=== PATIENT | female | born 1945 | race Caucasian/White ===

== ENCOUNTER → 2017-04-25 | Outpatient (CLI) | payer MEDICARE ==
--- NOTE | 2017-04-25 10:26 | CTL ---
EXAMINATION TYPE: CT Low Dose Lung DATE OF EXAM ORDERED: 04/25/2017 HISTORY: Tobacco abuse. Lung cancer screening CT DLP: 8.[address] CTDI: 2.14 mGy Automated exposure control for dose reduction was used. SCREENING VISIT: First screening visit COMPARISON: CT chest with contrast dated 05/03/2011 TECHNIQUE: Low dose computed tomography scan was performed through the chest at 1 mm thick sections a nd reconstructed images in the coronal plane at [address] DIAGNOSTIC QUALITY: Satisfactory FINDINGS: LUNG NODULES: None. Left a nodule with a size of 3 mm. Nodule Type: Subsolid that is Nodule state: New in nature on image # CT Image slide number 59 of series 5. LUNGS: COPD: Severity: None Fibrosis: Severity: None Lymph nodes: Single mildly enlarged 1.1 cm short axis prevascular soft tissue structure seen, possibl y relating to a lymph node. RIGHT PLEURAL SPACE: Effusion: None Calcification: None Thickening: Apical pleural-parenchymal thickening is present. Pneumothorax: None LEFT PLEURAL SPACE: Effusion: None Calcification: None Thickening: Apical pleural parenchyma thickening is present. Pneumothorax: None HEART: Heart Size: Within normal limits Coronary calcification: Mild of the right coronary artery and left anterior descending Pericardial effusion: None OTHER FINDINGS: Upper abdomen: Small hiatal hernia. Bony thorax: Mild multilevel degenerative changes of the thoracic spine are present. IMPRESSION: 1. Solitary left upper lobe subcentimeter pulmonary nodule qualifying as a nodule with a very low lik elihood of becoming clinically significant active cancer according to the LUNG-RADS criteria. However low dose CT thorax is recommended in 12 months to determine stability. 2. 1.1 cm prevascular soft tissue density that may represent a mildly enlarged lymph node. Reevaluati on on the above recommended follow-up examination could be performed. 3. Small hiatal hernia. FOLLOW UP CT CHEST RECOMMENDATION: [address] LUNG RAD: 2
== END | disposition home or self-care (01) ==
LOC: RADCTMAIN 09:18
PROVIDERS: ATTEND Family Medicine
DX: Z12.2 Encounter for screening for malignant neoplasm of respiratory organs (principal); R91.1 Solitary pulmonary nodule; R93.8 Abnormal findings on diagnostic imaging of other specified body structures; Z87.891 Personal history of nicotine dependence

== ENCOUNTER → 2017-08-30 | Outpatient (CLI) | payer MEDICARE ==
--- NOTE | 2017-08-30 18:00 | BD ---
EXAMINATION TYPE: MG DEXA axial skeleton. DATE OF EXAM: 08/30/2017 COMPARISON: 08.13.2002 CLINICAL HISTORY: 71 YR OLD FEMALE: ICD-10 CODE: Z13.820 OSTEOPOROSIS SCREENING Height: 62.3 Weight: 129 FRAX RISK QUESTIONS: Alcohol (3 or more units per day): NO Family History (Parent hip fracture): NO Glucocorticoids (More than 3mos): NO (Ex: prednisone, prednisolone, methylprednisolone, dexamethasone, and hydrocortisone). History of Fracture in Adulthood: NO Secondary Osteoporosis: NO 1. Type 1 Diabetes: NO 2. Hyperthyroidism: NO 3. Menopause before 45: NO 4. Malnutrition: NO 5. Chronic liver disease: NO Rheumatoid Arthritis: NO Current Tobacco Use: YES, ABOUT 10 DAILY RISK FACTORS HISTORY OF: History of Wrist Fracture: RT WRIST When: YOUNG WOMAN Family History of Osteoporosis: NO Active: YES Diet low in dairy products/other sources of calcium: YES, A BIT LOW Postmenopausal woman: YES AT 50 YRS OLD Take estrogen and/or progesterone medications: IN PAST FROM AGE [age] Lost more than 2 inches in height since high school: YES Hyperparathyroidism: NO Adrenal Insufficiency: NO MEDICATIONS: Additional Medications: BP MEDS, LIPITOR, Additional History: HYPERTENSION, CHOLESTEROL EXAM MEASUREMENTS: Bone mineral densitometry was performed using the [employer]. Bone mineral density as measured about the Lumbar spine is: ----- L1-L4(G/cm2): 1.104 T Score Values are as follows: ----- L1: -1.5 ----- L2: -0.4 ----- L3: -0.5 ----- L4: -0.2 ----- L1-L4: -0.6 Bone mineral density has: Increased 8.7% since study of: 08.13.2002 Bone mineral density about the R hip (g/cm2): 0.797 Bone mineral density about the L hip (g/cm2): 0.744 T Score values are as follows: -----R Neck: -2.0 -----L Neck: -2.4 -----R Total: -1.7 -----L Total: -2.1 Bone mineral density has: Decreased -10.2% since study of: 08.13.2002 FRAX%S: THERE IS A15.0% CHANCE OF A MAJOR OSTEOPOROTIC FX AND 5.6% FOR HIP FX....PROBABILITY OF FX IN 10 YRS TIME IMPRESSION: Osteopenia (T Score between -2.5 and -1). There is slightly increased risk of fracture and the patient may be considered for treatment. Re-Screen 2-5 years. NOTE: T-SCORE=SD OF THE YOUNG ADULT MEAN.
--- NOTE | 2017-09-03 09:21 | MM ---
Reason for exam: screening (asymptomatic). Last mammogram was performed 1 year and 6 months ago. History: Patient is postmenopausal and has history of high-risk lesion on a previous biopsy at age 63. Benign right US cyst aspiration of the right breast, November 30, 2009. Benign right breast US guided needle local of the right breast, May 16, 2009. Excisional biopsy of the right breast, May 16, 2009. High risk right US cyst aspiration of the right breast, May 02, 2009. Took estrogen for 14 years 11 months beginning at age 47. Physical Findings: A clinical breast exam by your physician is recommended on an annual basis and results should be correlated with mammographic findings. MG 3D Screening Mammo W/Cad Bilateral CC and MLO view(s) were taken. Prior study comparison: March 13, 2016, bilateral MG 3d screening mammo w/cad. January 24, 2015, bilateral MG screening mammo w CAD. The breast tissue is heterogeneously dense. This may lower the sensitivity of mammography. Previous mammotome biopsy in the right breast. Asymmetric density central left breast just below the retroareolar plane appears more defined. ASSESSMENT: Incomplete: need additional imaging evaluation, BI-RAD 0 RECOMMENDATION: Special view mammogram of the left breast. If lesion persists on supplemental views, image directed ultrasound is recommended. [facility] will attempt to contact patient to return for supplemental views and ultrasound if indicated.
== END | disposition home or self-care (01) ==
LOC: RADMAMWWP 08:11
PROVIDERS: ATTEND Family Medicine
DX: Z12.31 Encounter for screening mammogram for malignant neoplasm of breast (principal); M85.80 Other specified disorders of bone density and structure, unspecified site
CPT/HCPCS: 77063; 77067; 77080

== ENCOUNTER → 2017-09-05 | Outpatient (CLI) | payer MEDICARE ==
--- NOTE | 2017-09-05 09:49 | MM ---
Reason for exam: additional evaluation requested from abnormal screening. Last mammogram was performed less than 1 month ago. History: Patient is postmenopausal and has history of high-risk lesion on a previous biopsy at age 63. Benign right US cyst aspiration of the right breast, November 30, 2009. Benign right breast US guided needle local of the right breast, May 16, 2009. Excisional biopsy of the right breast, May 16, 2009. High risk right US cyst aspiration of the right breast, May 02, 2009. Took estrogen for 14 years 11 months beginning at age 47. Physical Findings: Nurse did not find any significant physical abnormalities on exam. MG 3D Work Up W/Cad LT LM and spot compression MLO view(s) were taken of the left breast. Prior study comparison: August 30, 2017, bilateral MG 3d screening mammo w/cad. March 13, 2016, bilateral MG 3d screening mammo w/cad. The breast tissue is heterogeneously dense. This may lower the sensitivity of mammography. The central asymmetric density appears to disperse on additional views. Precautionary 6 month follow up recommended given appearance on the screening exam. These results were verbally communicated with the patient and result sheet given to the patient on 09/05/17. ASSESSMENT: Probably benign, BI-RAD 3 RECOMMENDATION: Follow-up diagnostic mammogram of the left breast in 6 months.
== END | disposition home or self-care (01) ==
LOC: RADMAMWWP 08:12
PROVIDERS: ATTEND Family Medicine
DX: R92.8 Other abnormal and inconclusive findings on diagnostic imaging of breast (principal)
CPT/HCPCS: 77065; G0279

== ENCOUNTER → 2018-06-04 | Outpatient (CLI) | payer MEDICARE ==
--- NOTE | 2018-06-04 10:40 | MM ---
Reason for exam: follow-up at short interval from prior study. Last mammogram was performed 9 months ago. History: Patient is postmenopausal and has history of high-risk lesion on a previous biopsy at age 63. Benign right US cyst aspiration of the right breast, November 30, 2009. Benign right breast US guided needle local of the right breast, May 16, 2009. Excisional biopsy of the right breast, May 16, 2009. High risk right US cyst aspiration of the right breast, May 02, 2009. Took estrogen for 14 years 11 months beginning at age 47. Physical Findings: Nurse did not find any significant physical abnormalities on exam. MG 3D Diag Mammo W/Cad LT CC and MLO view(s) were taken of the left breast. Prior study comparison: September 05, 2017, left breast MG 3d work up w/cad LT. August 30, 2017, bilateral MG 3d screening mammo w/cad. The breast tissue is heterogeneously dense. This may lower the sensitivity of mammography. Benign oil cyst stable. Anterior asymmetric density below the retroareolar plane persisted. These results were verbally communicated with the patient and result sheet given to the patient on 06/04/18. ASSESSMENT: Benign, BI-RAD 2 RECOMMENDATION: Return to routine screening mammogram schedule for both breasts. Back on schedule.
== END ==
LOC: RADMAMWWP 08:49
PROVIDERS: ATTEND Internal Medicine
DX: R92.2 Inconclusive mammogram (principal)
CPT/HCPCS: 77065; G0279; 77061

== ENCOUNTER → 2018-09-26 | Outpatient (CLI) | payer MEDICARE ==
--- NOTE | 2018-09-29 11:14 | MM ---
Reason for exam: screening (asymptomatic). Last mammogram was performed 4 months ago. History: Patient is postmenopausal and has history of high-risk lesion on a previous biopsy at age 63. Benign right US cyst aspiration of the right breast, November 30, 2009. Benign right breast US guided needle local of the right breast, May 16, 2009. Excisional biopsy of the right breast, May 16, 2009. High risk right US cyst aspiration of the right breast, May 02, 2009. Took estrogen for 14 years 11 months beginning at age 47. Physical Findings: A clinical breast exam by your physician is recommended on an annual basis and results should be correlated with mammographic findings. MG 3D Screening Mammo W/Cad Bilateral CC and MLO view(s) were taken. Prior study comparison: June 04, 2018, left breast MG 3d diag mammo w/cad LT. September 05, 2017, left breast MG 3d work up w/cad LT. The breast tissue is heterogeneously dense. This may lower the sensitivity of mammography. Benign appearing bilateral calcifications. Right biopsy marker noted. No significant changes when compared with prior studies. ASSESSMENT: Benign, BI-RAD 2 RECOMMENDATION: Routine screening mammogram of both breasts in 1 year.
== END ==
LOC: RADMAMWWP 08:57
PROVIDERS: ATTEND Internal Medicine Geriatric Medicine
DX: Z12.31 Encounter for screening mammogram for malignant neoplasm of breast (principal)
CPT/HCPCS: 77063; 77067

== ENCOUNTER → 2018-12-23 | Outpatient (CLI) | payer MEDICARE ==
[2018-12-24 01:40] LABS: Anion Gap 9.8 mmol/L (4.00-12.00); BUN/Creat Ratio 23.75 Ratio (12.00-20.00); Calcium 9.7 mg/dL (8.7-10.3); Carbon Dioxide 27.2 mmol/L (21.6-31.8); Magnesium 1.8 mg/dL (1.5-2.4)
== END | disposition home or self-care (01) ==
LOC: LABWHC1 15:09
PROVIDERS: ATTEND Internal Medicine Interventional Cardiology
DX: I25.10 Atherosclerotic heart disease of native coronary artery without angina pectoris (principal)
CPT/HCPCS: 36415; 80048; 83735

== ENCOUNTER → 2018-12-26 | Outpatient (CLI) | payer MEDICARE ==
[2018-12-26 16:54] LABS: Anion Gap 5.7 mmol/L (4.00-12.00); BUN/Creat Ratio 18.75 Ratio (12.00-20.00); Calcium 9.4 mg/dL (8.7-10.3); Carbon Dioxide 29.3 mmol/L (21.6-31.8); Magnesium 1.7 mg/dL (1.5-2.4); Potassium 4.1 mmol/L (3.5-5.5)
[2018-12-26 17:02] LABS: T4, Free (Free Thyroxine) 1.2 ng/dL (0.80-1.80)
== END | disposition home or self-care (01) ==
LOC: LABWHC1 08:39
PROVIDERS: ATTEND Nurse Practitioner
DX: R00.2 Palpitations (principal)
CPT/HCPCS: 36415; 80048; 83735; 84439; 84443

== ENCOUNTER → 2020-01-15 | Outpatient (CLI) | payer MEDICARE ==
--- NOTE | 2020-01-19 08:26 | MM ---
Reason for exam: screening (asymptomatic). Last mammogram was performed 1 year and 4 months ago. History: Patient is postmenopausal and has history of high-risk lesion on a previous biopsy at age 63. Benign right US cyst aspiration of the right breast, November 30, 2009. Benign right breast US guided needle local of the right breast, May 16, 2009. Excisional biopsy of the right breast, May 16, 2009. High risk right US cyst aspiration of the right breast, May 02, 2009. Took hormonal contraceptives for 10 years. Took estrogen for 14 years 11 months beginning at age 47. Physical Findings: A clinical breast exam by your physician is recommended on an annual basis and results should be correlated with mammographic findings. MG 3D Screening Mammo W/Cad Bilateral CC and MLO view(s) were taken. Prior study comparison: September 26, 2018, bilateral MG 3d screening mammo w/cad. June 04, 2018, left breast MG 3d diag mammo w/cad LT. The breast tissue is heterogeneously dense. This may lower the sensitivity of mammography. Stable benign calcifications. There is no discrete abnormality. No significant changes when compared with prior studies. ASSESSMENT: Benign, BI-RAD 2 RECOMMENDATION: Routine screening mammogram of both breasts in 1 year.
== END | disposition home or self-care (01) ==
LOC: RADMAMWWP 08:57
PROVIDERS: ATTEND Internal Medicine
DX: Z12.31 Encounter for screening mammogram for malignant neoplasm of breast (principal)
CPT/HCPCS: 77063; 77067

== ENCOUNTER → 2020-03-24 | Outpatient (CLI) | payer MEDICARE ==
--- NOTE | 2020-03-24 13:42 | US ---
EXAMINATION TYPE: US kidneys/renal and bladder DATE OF EXAM: 03/24/2020 COMPARISON: NONE CLINICAL HISTORY: R30.0 DYSURIA x 2 months. Patient stated had type of bladder suspension without mes h approximately 2003. EXAM MEASUREMENTS: Right Kidney: 9.0 x 4.9 x 3.4 cm Left Kidney: 10.7 x 3.8 x 4.9 cm Post Void Residual Volume: 12.3 mL Right Kidney: No hydronephrosis or masses seen Left Kidney: mid pole cyst seen = 0.8 x 0.6 x 0.5cm; lobular cortex noted Bladder: wnl Bilateral Jets seen: yes Normal Post Void Residual: yes, as volume is less than 50.0ml. There is no evidence for hydronephrosis at this point in time. No nephrolithiasis is seen. The urina ry bladder is anechoic. Bilateral ureteral jets are seen. IMPRESSION: Left renal cyst.
== END | disposition home or self-care (01) ==
LOC: RADUSWWP 12:52
PROVIDERS: ATTEND Internal Medicine
DX: N28.1 Cyst of kidney, acquired (principal)
CPT/HCPCS: 76770

== ENCOUNTER → 2020-07-13 | Outpatient (CLI) | payer MEDICARE ==
--- NOTE | 2020-07-13 18:57 | BD ---
EXAMINATION TYPE: Axial Bone Density DATE OF EXAM: 07/13/2020 COMPARISON: 08.30.2017 CLINICAL HISTORY: 74 YR OLD FEMALE.....ICD-10 CODE: M81.0 KNOWN OSTEOPOROSIS Height: 62.5 Weight: 132 FRAX RISK QUESTIONS: Current Tobacco Use: YES RISK FACTORS HISTORY OF: HX OF ELBOW FX...45 YRS AGO History of Wrist Fracture: HS OF RT WRIST FX YOUNG ADULT Family History of Osteoporosis: NO Postmenopausal woman: YES, AT 50 YRS OLD Take estrogen and/or progesterone medications: YES, IN THE PAST FOR ABOUT 8 YRS Lost more than 2 inches in height since high school: YES Hyperparathyroidism: NO Adrenal Insufficiency: NO MEDICATIONS: Additional Medications: BP MEDS, CHOLESTEROL MEDS, CALCIUM AND VIT D Additional History: HYPERTENSION, CHOLESTEROL, EXAM MEASUREMENTS: Bone mineral densitometry was performed using the [employer] System. Bone mineral density as measured about the Lumbar spine is: ----- L1-L4(G/cm2): 1.164 T Score Values are as follows: ----- L1: -0.8 ----- L2: -0.2 ----- L3: 0.4 ----- L4: -0.2 ----- L1-L4: -0.1 Bone mineral density has: Increased 4.4% since study of: 08.30.2017 Bone mineral density about the R hip (g/cm2): 0.780 Bone mineral density about the L hip (g/cm2): 0.713 T Score values are as follows: -----R Neck: -1.6 -----L Neck: -2.4 -----R Total: -1.8 -----L Total: -2.3 Bone mineral density has: Decreased -3.1% since study of: 08.30.2017 FRAX%s: THERE IS A 16.5% CHANCE FOR A MAJOR OSTEOPOROTIC FX AND A 6.9% FOR HIP.....PROBABILITY FO R FX IN 10 YRS TIME IMPRESSION: Osteopenia (T Score between -2.5 and -1). Note that measurements border on osteoporosis at both hips. There is slightly increased risk of fracture and the patient may be considered for treatment. Re-Screen 2-5 years. NOTE: T-SCORE=SD OF THE YOUNG ADULT MEAN.
== END | disposition home or self-care (01) ==
LOC: RADBDWWP 08:35
PROVIDERS: ATTEND Internal Medicine
DX: M81.0 Age-related osteoporosis without current pathological fracture (principal); M85.80 Other specified disorders of bone density and structure, unspecified site
CPT/HCPCS: 77080

== ENCOUNTER → 2021-02-16 | Outpatient (CLI) | payer MEDICARE ==
--- NOTE | 2021-02-20 14:26 | MM ---
Reason for exam: screening (asymptomatic). Last mammogram was performed 1 year and 1 month ago. History: Patient is postmenopausal and has history of high-risk lesion on a previous biopsy at age 63. Benign right US cyst aspiration of the right breast, November 30, 2009. Benign right breast US guided needle local of the right breast, May 16, 2009. Excisional biopsy of the right breast, May 16, 2009. High risk right US cyst aspiration of the right breast, May 02, 2009. Took hormonal contraceptives for 10 years. Took estrogen for 14 years 11 months beginning at age 47. Physical Findings: A clinical breast exam by your physician is recommended on an annual basis and results should be correlated with mammographic findings. MG 3D Screening Mammo W/Cad Bilateral CC and MLO view(s) were taken. Prior study comparison: January 15, 2020, bilateral MG 3d screening mammo w/cad. September 26, 2018, bilateral MG 3d screening mammo w/cad. There are scattered fibroglandular densities. Previous mammotome biopsy in the right breast. No significant changes when compared with prior studies. ASSESSMENT: Benign, BI-RAD 2 RECOMMENDATION: Routine screening mammogram of both breasts in 1 year.
== END | disposition home or self-care (01) ==
LOC: RADMAMWWP 10:55
PROVIDERS: ATTEND Internal Medicine
DX: Z12.31 Encounter for screening mammogram for malignant neoplasm of breast (principal)
CPT/HCPCS: 77063; 77067

== ENCOUNTER → 2022-10-22 | Outpatient (CLI) | payer MEDICARE ==
--- NOTE | 2022-10-22 13:59 | XR ---
EXAMINATION TYPE: XR chest 2V DATE OF EXAM: 10/22/2022 COMPARISON: 03/06/2015 TECHNIQUE: PA and lateral views submitted. HISTORY: Cough FINDINGS: The lungs are clear and there is no pneumothorax, pleural effusion, or focal pneumonia. Heart size normal and no overt failure. There is a 5 mm nodule in the left lower lobe. Linear changes right uppe r lobe. Biapical pleural thickening. Atherosclerotic change aorta. Hyperinflation of the lungs. IMPRESSION: 1. COPD with no definite acute infiltrate. There is a new 5 mm nodule left lower lobe. CT of the ches t recommended..
== END | disposition home or self-care (01) ==
LOC: RADXRMAIN 12:32
PROVIDERS: ATTEND Internal Medicine Geriatric Medicine
DX: J44.9 Chronic obstructive pulmonary disease, unspecified (principal); R91.1 Solitary pulmonary nodule
CPT/HCPCS: 71046

== ENCOUNTER → 2022-10-31 | Outpatient (CLI) | payer MEDICARE ==
[2022-10-31 11:38] LABS: African American GFR (CKD) >90 (>60 ml/min/1.73 sqM); Blood Urea Nitrogen 23 mg/dL (7-17); Non-African American GFR(CKD) 85 (>60 ml/min/1.73 sqM)
--- NOTE | 2022-10-31 12:33 | CT ---
EXAMINATION TYPE: CT chest w con CT DLP: 426 mGycm, Automated exposure control for dose reduction was used. DATE OF EXAM: 10/31/2022 12:23 PM COMPARISON: Chest radiograph 10/22/2022, CT chest 05/03/2011 CLINICAL INDICATION:Female, 76 years old with history of R07.9 I10; PHH, nodules TECHNIQUE: Multiple axial images were obtained through the chest following the administration of 100 cc of Isovue 300. FINDINGS: LUNGS/ PLEURA: No pleural effusion, pneumothorax, focal consolidation. Mild centrilobular emphysemato us changes in the bilateral upper lobes. Right apical pleural-parenchymal scarring. No suspicious pu lmonary nodules or masses. AIRWAY: Patent and unremarkable.. HEART: Size within normal limits. No pericardial effusion. MEDIASTINUM: No evidence of adenopathy. VASCULATURE: No aortic aneurysm. MUSCULOSKELETAL: No acute osseous abnormalities. Scoliotic curvature. Moderate multilevel degenerativ e disc disease. SOFT TISSUES/LYMPH NODES: There is a 6 mm calcification within the left breast with additional small calcification within the right breast. LOWER NECK: No significant findings. UPPER ABDOMEN: No significant findings. IMPRESSION: 1. No acute thoracic process. No clinically significant pulmonary nodules. Questioned left lower lobe pulmonary nodule corresponds to a 6 mm calcification with the left breast. 2. Mild COPD changes.
== END | disposition home or self-care (01) ==
LOC: RADCTMAIN 10:59
PROVIDERS: ATTEND Internal Medicine Geriatric Medicine
DX: J44.9 Chronic obstructive pulmonary disease, unspecified (principal); R91.1 Solitary pulmonary nodule
CPT/HCPCS: 82565; 84520; 71260; 36415; Q9967

== ENCOUNTER → 2023-04-04 | Outpatient (CLI) | payer MEDICARE ==
--- NOTE | 2023-04-05 08:59 | MM ---
Reason for Exam: Screening (asymptomatic). Last mammogram was performed 1 year(s) and 1 month(s) ago. Patient History: Menarche at age 13. First Full-Term at age 23. Hysterectomy at age 44. Postmenopausal. Estrogen for 14 years, 11 months, from age 47 until age 65. Patient used Hormonal Contraceptives for 10 years. 05/16/2009, Excisional Biopsy on the Right side. 11/30/2009, Benign Cyst Aspiration on the right side. 05/16/2009, Benign Excisional Biopsy on the right side. 05/02/2009, High risk Cyst Aspiration on the right side. Risk Values: Aisha 5 year model risk: 2.6%. NCI Lifetime model risk: 5.6%. Prior Study Comparison: 01/15/2020 Bilateral Screening Mammogram, [facility]. 02/16/2021 Bilateral Screening Mammogram, [facility]. 03/09/2022 Bilateral MG 3D screening mammo w/cad, [facility]. Tissue Density: The breast tissue is heterogeneously dense. This may lower the sensitivity of mammography. Findings: Analyzed By CAD. There is no suspicious group of microcalcifications or new suspicious mass in either breast. Overall Assessment: Benign, BI-RAD 2 Management: Screening Mammogram of both breasts in 1 year. . Patient should continue monthly self-breast exams. A clinical breast exam by your physician is recommended on an annual basis. This exam should not preclude additional follow-up of suspicious palpable abnormalities. Note on Aisha scores and lifetime risk: 1. A Aisha score greater than 3% is considered moderate risk. If this is the case, consider specialist referral to assess eligibility for a risk reducing agent. 2. If overall lifetime risk for the development of breast cancer is 20% or higher, the patient may qualify for future screening with alternating mammogram and breast MRI. Electronically signed and approved by: Ramón Hood M.D. Radiologis
== END | disposition home or self-care (01) ==
LOC: RADMAMWWP 07:40
PROVIDERS: ATTEND Internal Medicine Geriatric Medicine
DX: Z12.31 Encounter for screening mammogram for malignant neoplasm of breast (principal); Z78.0 Asymptomatic menopausal state
CPT/HCPCS: 77063; 77067

== ENCOUNTER 2023-06-24 08:58 | Emergency (ER) | payer MEDICARE ==
[2023-06-24] MEDS ORDERED: SODIUM CHLORIDE 0.9% 1,000 ML IV ONE (10:02)
[2023-06-24] MEDS ORDERED: KETOROLAC 15 MG/ML 1 ML VIAL IVP STA (10:03)
--- NOTE | 2023-06-24 10:04 | ED ---
Female Urogenital HPI - General Chief complaint: Urogenital Stated complaint: Urogenital Time Seen by Provider: 06/24/23 09:19 Source: patient, RN notes reviewed Mode of arrival: ambulatory Limitations: no limitations - History of Present Illness Initial comments: 77-year-old female presents emergency Department chief complaint of lower abdominal pressure, discomfort. She states that she started having some symptoms last few days and states that she feels like she does dribbles when she urinates states it sharp stabbing discomfort when she urinates. She has no history of cystocele or rectocele she states she has an appointment with Dr. Farah on Saturday. She states today it was too uncomfortable. She also states that she has had some constipation issues. Patient denies any reports of fever states that she had some chills but denies any flank pain. - Related Data Home Medications Medication Instructions Recorded Confirmed Aspirin 81 mg PO DAILY 11/15/14 06/24/23 Atorvastatin [Lipitor] 40 mg PO HS 11/15/14 06/24/23 Losartan Potassium 50 mg PO HS 11/15/14 06/24/23 Cetirizine HCl [Zyrtec] 10 mg PO DAILY 06/24/23 06/24/23 Cholecalciferol [Vitamin D3 (25 50 mcg PO DAILY 06/24/23 06/24/23 Mcg = 1000 Iu)] Fluticasone Nasal [place] [Flonase 1 spray EA NOSTRIL DAILY PRN 06/24/23 06/24/23 Nasal [place]] Metoprolol Tartrate [Lopressor] 12.5 mg PO HS 06/24/23 06/24/23 Metoprolol Tartrate [Lopressor] 25 mg PO DAILY 06/24/23 06/24/23 Previous Rx's Medication Instructions Recorded Ciprofloxacin HCl [Cipro] 500 mg PO Q12HR #14 tablet 06/24/23 Nitrofurantoin Monohyd/M-Cryst 100 mg PO Q12HR #14 cap 06/24/23 [Macrobid] Phenazopyridine [Pyridium] 200 mg PO TID #6 tablet 06/24/23 Allergies Allergy/AdvReac Type Severity Reaction Status Date / Time latex Allergy Rash/Hives Verified 06/24/23 11:00 Penicillins Allergy Anaphylaxis Verified 06/24/23 11:00 shellfish derived [Shellfish] Allergy Anaphylaxis Verified 06/24/23 11:00 Sulfa (Sulfonamide Allergy Anaphylaxis Verified 06/24/23 11:00 Antibiotics) Review of Systems ROS Statement: Those systems with pertinent positive or pertinent negative responses have been documented in the HPI. ROS Other: All systems not noted in ROS Statement are negative. 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 NEVER HAS HAD A BLOOD TRANSFUSION Date of Last Stent Placement:: 2010 Past Psychological History: No Psychological Hx Reported Smoking Status: Current every day smoker Past Alcohol Use History: None Reported Past Drug Use History: None Reported - Past Family History Father Additional Family Medical History / Comment(s): UNKNOWN HX Mother Additional Family Medical History / Comment(s): UNKNOWN HX General Exam Limitations: no limitations General appearance: alert, in no apparent distress Head exam: Present: atraumatic, normocephalic, normal inspection Eye exam: Present: normal appearance, PERRL, EOMI. Absent: scleral icterus, conjunctival injection, periorbital swelling Neck exam: Present: normal inspection, full ROM. Absent: tenderness, meningismus, lymphadenopathy Respiratory exam: Present: normal lung sounds bilaterally. Absent: respiratory distress, wheezes, rales, rhonchi, stridor Cardiovascular Exam: Present: regular rate, normal rhythm, normal heart sounds. Absent: systolic murmur, diastolic murmur, rubs, gallop, clicks GI/Abdominal exam: Present: soft, tenderness, normal bowel sounds. Absent: distended, guarding, rebound, rigid Back exam: Absent: CVA tenderness (R), CVA tenderness (L) Neurological exam: Present: alert Course Vital Signs 06/24/23 06/24/23 09:06 13:03 Temperature 98.6 F 98.4 F Pulse Rate 72 61 Respiratory 20 18 Rate Blood Pressure 166/93 174/93 O2 Sat by Pulse 99 98 Oximetry Medical Decision Making - Medical Decision Making Was pt. sent in by a medical professional or institution (CANDACE Kirkland, FABRIC AWNING REPAIRER, urgent care, hospital, or longterm...) When possible be specific @ -No Did you speak to anyone other than the patient for history (EMS, parent, family, police, friend...)? What history was obtained from this source @ -No Did you review nursing and triage notes (agree or disagree)? Why? @ -I reviewed and agree with nursing and triage notes Were old charts reviewed (outside hosp., previous admission, EMS record, old EKG, old radiological studies, urgent care reports/EKG's, longterm records)? Report findings @ -No old charts were reviewed Differential Diagnosis (chest pain, altered mental status, abdominal pain women, abdominal pain men, vaginal bleeding, weakness, fever, dyspnea, syncope, headache, dizziness, GI bleed, back pain, seizure, CVA, palpatations, mental health, musculoskeletal)? @ -nDifferential Abdominal Pain Women: Appendicitis, Cholecystitis, diverticulosis, ischemic bowel, pancreatitis, hepatitis, UTI, gastroenteritis, AAA, incarcerated hernia, bowel obstruction, constipation, inflammatory bowel, hepatitis, peptic ulcer disease, splenic infarction, perforated viscus, vulvitis, ovarian torsion, PID, kidney stone, placenta abruption, this is not meant to be an all-inclusive listle EKG interpreted by me (3pts min.). @ -None X-rays interpreted by me (1pt min.). @ -None done CT interpreted by me (1pt min.). @ -None done U/S interpreted by me (1pt. min.). @ -None done What testing was considered but not performed or refused? (CT, X-rays, U/S, labs)? Why? @ -None What meds were considered but not given or refused? Why? @ -None Did you discuss the management of the patient with other professionals (professionals i.e. CANDACE Kirkland, FABRIC AWNING REPAIRER, lab, RT, psych nurse, social media content manager, customer care assistant, teacher, banking services officer, pillowcase cutter)? Give summary @ -No Was smoking cessation discussed for >3mins.? @ -No Was critical care preformed (if so, how long)? @ -No Were there social determinants of health that impacted care today? How? (Homel essness, low income, unemployed, alcoholism, drug addiction, transportation, low edu. Level, literacy, decrease access to med. care, prison, rehab)? @ -No Was there de-escalation of care discussed even if they declined (Discuss DNR or withdrawal of care, Hospice)? DNR status @ -No What co-morbidities impacted this encounter? (DM, HTN, Smoking, COPD, CAD, Cancer, CVA, ARF, Chemo, Hep., AIDS, mental health diagnosis, sleep apnea, morbid obesity)? @ -None Was patient admitted / discharged? Hospital course, mention meds given and route, prescriptions, significant lab abnormalities, going to OR and other pertinent info. @ -Discharge patient has evidence of UTI. Patient was given Rocephin discharges IV fluids patient has a follow-up with urology on Saturday. Patient was initially discharged on Macrobid though pharmacy reports she may have an ALLERGY was given prescription for Cipro she tolerated this in the past. Undiagnosed new problem with uncertain prognosis? @ -No Drug Therapy requiring intensive monitoring for toxicity (Heparin, Nitro, Insulin, Cardizem)? @ -No Were any procedures done? @ -No Diagnosis/symptom? @ -[UTI Acute, or Chronic, or Acute on Chronic? @ -Acute Uncomplicated (without systemic symptoms) or Complicated (systemic symptoms)? @ -Uncomplicated Side effects of treatment? @ -No Exacerbation, Progression, or Severe Exacerbation? @ -No Poses a threat to life or bodily function? How? (Chest pain, [place], [place], pneumonia, PE, COPD, DKA, ARF, appy, cholecystitis, CVA, Diverticulitis, Homicidal, Suicidal, threat to staff... and all critical care pts) @ -No - Lab Data Result diagrams: 06/24/23 10:39 06/24/23 10:39 Lab Results 06/24/23 06/24/23 06/24/23 Range/Units 10:27 10:39 10:39 WBC 11.1 H (3.8-10.6) k/uL RBC 4.79 (3.80-5.40) m/uL Hgb 15.0 (11.4-16.0) gm/dL Hct 46.0 (34.0-46.0) % MCV 96.1 (80.0-100.0) fL MCH 31.4 (25.0-35.0) pg MCHC 32.7 (31.0-37.0) g/dL RDW 12.8 (11.5-15.5) % Plt Count 296 (150-450) k/uL MPV 7.9 Neutrophils % 64 % Lymphocytes % 27 % Monocytes % 5 % Eosinophils % 2 % Basophils % 1 % Neutrophils # 7.1 (1.3-7.7) k/uL Lymphocytes # 3.0 (1.0-4.8) k/uL Monocytes # 0.6 (0-1.0) k/uL Eosinophils # 0.2 (0-0.7) k/uL Basophils # 0.1 (0-0.2) k/uL Sodium 139 (137-145) mmol/L Potassium 3.9 (3.5-5.1) mmol/L Chloride 102 (98-107) mmol/L Carbon Dioxide 21 L (22-30) mmol/L Anion Gap 16 mmol/L BUN 18 H (7-17) mg/dL Creatinine 0.91 (0.52-1.04) mg/dL Est GFR (CKD-EPI)AfAm 71 (>60 ml/min/1.73 sqM) Est GFR (CKD-EPI)NonAf 62 (>60 ml/min/1.73 sqM) Glucose 95 (74-99) mg/dL Calcium 9.9 (8.4-10.2) mg/dL Total Bilirubin 0.7 (0.2-1.3) mg/dL AST 35 (14-36) U/L ALT 28 (4-34) U/L Alkaline Phosphatase 104 (38-126) U/L Total Protein 7.5 (6.3-8.2) g/dL Albumin 4.5 (3.5-5.0) g/dL Urine Color Yellow Urine Appearance Slightly Cloudy H (Clear) Urine pH 6.0 (5.0-8.0) Ur Specific [place] 1.010 (1.001-1.035) Urine Protein 1+ H (Negative) Urine Glucose (UA) Negative (Negative) Urine Ketones Negative (Negative) Urine Blood Large (Negative) Urine Nitrite Negative (Negative) Urine Bilirubin Negative (Negative) Urine Urobilinogen 0.2 (<2.0) mg/dL Ur Leukocyte Esterase Large (Negative) Urine RBC 74 H (0-5) /hpf Urine WBC >182 H (0-5) /hpf Urine WBC Clumps Many H (None) /hpf Urine Bacteria Few H (None) /hpf Disposition Clinical Impression: Urinary tract infection Disposition: HOME SELF-CARE Condition: Stable Instructions (If sedation given, give patient instructions): Urinary Tract Infection in Women (ED) Additional Instructions: Please return to the Emergency Department if symptoms worsen or any other concerns. Prescriptions: Ciprofloxacin HCl [Cipro] 500 mg PO Q12HR #14 tablet Nitrofurantoin Monohyd/M-Cryst [Macrobid] 100 mg PO Q12HR #14 cap Phenazopyridine [Pyridium] 200 mg PO TID #6 tablet Is patient prescribed a controlled substance at d/c from ED?: No Referrals: Neno Ireland MD [Primary Care Provider] - 1-2 days Time of Disposition: 12:37
[2023-06-24] MEDS ORDERED: PHENAZOPYRIDINE 200 MG TAB PO STA (10:07)
[2023-06-24] MEDS ORDERED: ONDANSETRON 4 MG/2 ML VIAL IVP STA (10:47)
[2023-06-24 10:58] LABS: Basophils # (A) 0.1 k/uL (0-0.2); Basophils % (A) 1 %; Eosinophils # (A) 0.2 k/uL (0-0.7); Eosinophils % (A) 2 %; Lymphocytes % (A) 27 %; MCH 31.4 pg (25.0-35.0); MCHC 32.7 g/dL (31.0-37.0); MCV 96.1 fL (80.0-100.0); Mean Platelet Volume 7.9; Monocytes # (A) 0.6 k/uL (0-1.0); Monocytes % (A) 5 %; Neutrophils # (A) 7.1 k/uL (1.3-7.7); Neutrophils % (A) 64 %; Platelet Count 296 k/uL (150-450); RBC 4.79 m/uL (3.80-5.40); RDW 12.8 % (11.5-15.5); WBC 11.1 k/uL (3.8-10.6)
[2023-06-24 11:16] LABS: Appearance,Urine Slightly Cloudy (Clear); Bacteria,Urine Few /hpf; Color,Urine Yellow; RBC,Urine 74 /hpf (0-5); WBC,Urine >182 /hpf (0-5)
[2023-06-24 11:17] LABS: Bilirubin,Urine Negative (Negative); Blood,Urine Large (Negative); Glucose,Urine (UA) Negative (Negative); Ketones,Urine Negative (Negative); Leukocyte Esterase,Urine Large (Negative); Nitrite,Urine Negative (Negative); Protein,Urine 1+ (Negative); Urobilinogen,Urine 0.2 mg/dL (<2.0)
[2023-06-24 11:47] LABS: ALT 28 U/L (4-34); AST 35 U/L (14-36); African American GFR (CKD) 71 (>60 ml/min/1.73 sqM); Albumin 4.5 g/dL (3.5-5.0); Alkaline Phosphatase 104 U/L (38-126); Anion Gap 16 mmol/L; Blood Urea Nitrogen 18 mg/dL (7-17); Calcium 9.9 mg/dL (8.4-10.2); Carbon Dioxide 21 mmol/L (22-30); Chloride 102 mmol/L (98-107); Glucose 95 mg/dL (74-99); Non-African American GFR(CKD) 62 (>60 ml/min/1.73 sqM); Potassium 3.9 mmol/L (3.5-5.1); Sodium 139 mmol/L (137-145); Total Bilirubin 0.7 mg/dL (0.2-1.3); Total Protein 7.5 g/dL (6.3-8.2)
[2023-06-24] MEDS ORDERED: cefTRIAXone IN SWFI 1,000 MG/10 ML SYRINGE IVP STA (12:47)
[2023-06-24 13:34] VITALS: BP 174/93; PULSE 61; RESP 18; TEMP 98.4
== END 2023-06-24 13:12 | disposition home or self-care (01) ==
LOC: EC 08:58
DX: N39.0 Urinary tract infection, site not specified (principal); E78.5 Hyperlipidemia, unspecified; I10 Essential (primary) hypertension; I25.2 Old myocardial infarction; F17.200 Nicotine dependence, unspecified, uncomplicated; Z79.82 Long term (current) use of aspirin; Z79.899 Other long term (current) drug therapy; Z88.0 Allergy status to penicillin; Z88.2 Allergy status to sulfonamides; Z91.040 Latex allergy status; Z91.013 Allergy to seafood
CPT/HCPCS: 51798; 36415; 80053; 85025; 81001; 87086; 99284; 96374; 96375 ×2; 96361; J2405; J0696; J1885

== ENCOUNTER → 2024-07-03 | Outpatient (CLI) | payer MEDICARE ==
--- NOTE | 2024-07-03 14:27 | BD ---
EXAMINATION TYPE: Axial Bone Density DATE OF EXAM: 07/03/2024 CLINICAL HISTORY: 78 years old Female. ICD-10 CODE: M81.0OSTEOPOROSIS , Additional History: Height: 62.5 Weight: 121.1 FRAX RISK QUESTIONS: Alcohol (3 or more units per day): no Family History (Parent hip fracture): no Glucocorticoids (More than 3mos): no (Ex: prednisone, prednisolone, methylprednisolone, dexamethasone, and hydrocortisone). History of Fracture in Adulthood: yes Secondary Osteoporosis: 1. Type 1 Diabetes: no 2. Hyperthyroidism: no 3. Menopause before 45: yes 4. Malnutrition: no 5. Chronic liver disease: no Rheumatoid Arthritis: no Current Tobacco Use: yes RISK FACTORS HISTORY OF: History of Wrist Fracture: right When: around age 62 Surgery to Spine/Hip(right/left)/Wrist (right/left): no EXAM MEASUREMENTS: Bone mineral densitometry was performed using the [employer]. Bone mineral density as measured about the Lumbar spine is: ----- L1-L4(G/cm2): 1.1780.7 T Score Values are as follows: ----- L1: -0.3 ----- L2: -0.3 ----- L3: -0.2 ----- L4: -0.2 ----- L1-L4: 0.0 Z Score Values are as follows: ----- L1: 2.8 ----- L2: 1.8 ----- L3: 1.8 ----- L4: 1.9 ----- L1-L4: 2.1 Bone mineral density has: increased 1.1 % since study of: 03.09.2022 Bone mineral density about the R hip (g/cm2): 0.746 Bone mineral density about the L hip (g/cm2): 0.695 T Score values are as follows: -----R Neck: -1.6 -----L Neck: -2.6 -----R Total: -2.1 -----L Total: -2.5 Z Score values are as follows: -----R Neck: 0.6 -----L Neck: -0.3 -----R Total: 0.0 -----L Total: -0.4 Bone mineral density has: decreased -3.5 % since study of: 8 FRAX%s: The graph provided illustrates a 26.1% chance for a major osteoporotic fx and a 12.5% chance for the hips probability for fx in 10 years time. IMPRESSION: Osteoporosis (T Score less than -2.5). There is increased fracture risk and therapy is usually indicated based on age. Re-Screen 1-2 years. NOTE: T-SCORE=SD OF THE YOUNG ADULT MEAN. [facility], , 07/03/2024 2:25 PM
--- NOTE | 2024-07-07 13:39 | MM ---
Reason for Exam: Screening (asymptomatic). Last mammogram was performed 1 year(s) and 3 month(s) ago. Patient History: Menarche at age 13. First Full-Term at age 23. Hysterectomy at age 44. Postmenopausal. Estrogen for 14 years, 11 months, from age 47 until age 65. Patient used Hormonal Contraceptives for 10 years. 05/16/2009, Excisional Biopsy on the Right side. 11/30/2009, Benign Cyst Aspiration on the right side. 05/16/2009, Benign Excisional Biopsy on the right side. 05/02/2009, High risk Cyst Aspiration on the right side. Risk Values: Aisha 5 year model risk: 2.6%. NCI Lifetime model risk: 5.3%. Prior Study Comparison: 02/16/2021 Bilateral Screening Mammogram, [facility]. 03/09/2022 Bilateral MG 3D screening mammo w/cad, [facility]. 04/04/2023 Bilateral MG 3D screening mammo w/cad, [facility]. Tissue Density: The breasts are heterogeneously dense, which may obscure small masses. Findings: Analyzed By CAD. Asymmetric densities on the left remain unchanged. Benign bilateral gliosis calcifications. Microclip anterior right breast from prior biopsy. There is no suspicious group of microcalcifications or new suspicious mass in either breast. Overall Assessment: Benign, BI-RAD 2 Management: Screening Mammogram of both breasts in 1 year. . Patient should continue monthly self-breast exams. A clinical breast exam by your physician is recommended on an annual basis. This exam should not preclude additional follow-up of suspicious palpable abnormalities. Note on Aisha scores and lifetime risk: 1. A Aisha score greater than 3% is considered moderate risk. If this is the case, consider specialist referral to assess eligibility for a risk reducing agent. 2. If overall lifetime risk for the development of breast cancer is 20% or higher, the patient may qualify for future screening with alternating mammogram and breast MRI. [facility], , 07/07/2024 1:36 PM. Electronically signed and approved by: Uziel Love M.D. Radiologist
== END | disposition home or self-care (01) ==
LOC: RADMAMWWP 09:46
PROVIDERS: ATTEND Internal Medicine Geriatric Medicine
DX: Z12.31 Encounter for screening mammogram for malignant neoplasm of breast (principal); M81.0 Age-related osteoporosis without current pathological fracture; Z78.0 Asymptomatic menopausal state; R92.333 Mammographic heterogeneous density, bilateral breasts
CPT/HCPCS: 77063; 77067; 77080